=== PATIENT | male | born 1980 | race Caucasian/White ===

== ENCOUNTER 2020-04-16 09:47 | Emergency (ER) | payer MEDICAID ==
[~2020-04-16] VITALS: Ht 180.3 cm; Wt 54.4 kg
--- NOTE | 2020-04-16 10:09 | NUR ---
C/O LOWER LEFT JAW PAIN X 2 DAYS. TOOK MOTRIN YESTERDAY; LAST DOSE 0100 TODAY. NO DENTAL APPOINTMENT SCHEDULED.
[2020-04-16] MEDS ORDERED: CYCL-259 PO (10:11)
[2020-04-16 10:16] VITALS: BP 144/93
== END 2020-04-16 10:31 | disposition home or self-care (01) ==
LOC: ED 10:02
DX: K02.9 Dental caries, unspecified (principal); K08.89 Other specified disorders of teeth and supporting structures; F17.290 Nicotine dependence, other tobacco product, uncomplicated
CPT/HCPCS: 99283